=== PATIENT | male | born 1970 | race Caucasian/White ===

== ENCOUNTER → 2016-07-07 | Outpatient (CLI) | payer BC ==
[~2016-07-07] MED LIST: ASPCH81X PO; FENO1TAB PO; MULT-506 PO; VITACAP26 PO
[2016-07-07 16:42] LABS: HEMATOCRIT 37.5 % (42-52); MEAN CELL VOLUME 87.8 fL (80-100); MEAN CORPUSCULAR HEMOGLOBIN 29.3 pg (25-34); MEAN CORPUSCULAR HGB CONC 33.3 g/dl (32-36); MEAN PLATELET VOLUME 11.2 fL (7.4-10.4); PLATELET COUNT 202 K/uL (130-400); RED BLOOD COUNT 4.27 M/uL (4.7-6.1); WHITE BLOOD COUNT 5.53 K/uL (4.8-10.8)
[2016-07-07 16:52] LABS: PROTHROMBIN TIME (PATIENT) 10.7 SECONDS (9.0-12.0)
== END | disposition home or self-care (01) ==
LOC: C.LABBFT 12:36
PROVIDERS: ATTEND Internal Medicine
DX: N40.1 Benign prostatic hyperplasia with lower urinary tract symptoms (principal); K92.1 Melena

== ENCOUNTER → 2017-08-16 | Outpatient (CLI) | payer OTHER ==
[2017-08-16 12:22] LABS: BASO % 0.7 %; BASO ABS # 0.03 K/uL (0-0.2); EOS % 1.6 %; EOS ABS # 0.07 K/uL (0-0.5); HEMATOCRIT 39.1 % (42-52); HEMOGLOBIN 12.8 g/dL (14.0-18.0); IG# 0.01 K/uL (0.00-0.02); LYMPH % 29.6 %; LYMPH ABS # 1.26 K/uL (1.2-3.4); MEAN CELL VOLUME 89.7 fL (80-100); MEAN CORPUSCULAR HEMOGLOBIN 29.4 pg (25-34); MEAN CORPUSCULAR HGB CONC 32.7 g/dl (32-36); MONO % 12.5 %; MONO ABS # 0.53 K/uL (0.11-0.59); NEUT % 55.4 %; NEUT ABS # 2.35 K/uL (1.4-6.5); PLATELET COUNT 194 K/uL (130-400); RED CELL DISTRIBUTION WIDTH CV 14.3 % (11.5-14.5); RED CELL DISTRIBUTION WIDTH SD 46.7 fL (36.4-46.3); WHITE BLOOD COUNT 4.25 K/uL (4.8-10.8)
[2017-08-16 12:49] LABS: ALBUMIN 3.8 gm/dl (3.4-5.0); ALT/SGPT 33 U/L (12-78); AST/SGOT 17 U/L (15-37); BLOOD UREA NITROGEN 20 mg/dl (7-18); CALCIUM 8.9 mg/dl (8.5-10.1); CARBON DIOXIDE 27 mmol/L (21-32); CREATININE 1.11 mg/dl (0.60-1.40); GLUCOSE 97 mg/dl (70-99); POTASSIUM 4.2 mmol/L (3.5-5.1); SODIUM 140 mmol/L (136-145)
[2017-08-16 12:52] LABS: ALKALINE PHOSPHATASE 56 U/L (45-117); CHOLESTEROL 215 mg/dl (0-200); LDL CHOLESTEROL CALCULATED 143 mg/dl; TOTAL PROTEIN 7.6 gm/dl (6.4-8.2)
== END ==
LOC: C.LABBFT 07:32
PROVIDERS: ATTEND Internal Medicine
DX: E78.5 Hyperlipidemia, unspecified (principal)

== ENCOUNTER 2017-11-10 16:09 | Emergency (ER) | payer OTHER ==
[~2017-11-10] VITALS: Ht 175.3 cm; Wt 85.0 kg
[2017-11-10 16:13] VITALS: Ht 175.3 cm; Wt 85.0 kg
[2017-11-10] MEDS ORDERED: SODIUM CHLORIDE 0.9% 1000ML 1,000 ML IV STA (16:23)
[2017-11-10] MEDS ORDERED: OPTIRAY 320 IV PRN (16:30)
[2017-11-10] MEDS ORDERED: URX/10 PO (16:34)
[2017-11-10 17:01] LABS: BASO % 0.1 %; BASO ABS # 0.01 K/uL (0-0.2); EOS % 0.2 %; EOS ABS # 0.02 K/uL (0-0.5); HEMATOCRIT 39.6 % (42-52); HEMOGLOBIN 13.4 g/dL (14.0-18.0); IG# 0.02 K/uL (0.00-0.02); LYMPH % 9.5 %; LYMPH ABS # 1.04 K/uL (1.2-3.4); MEAN CORPUSCULAR HEMOGLOBIN 29.5 pg (25-34); MEAN CORPUSCULAR HGB CONC 33.8 g/dl (32-36); MEAN PLATELET VOLUME 10.9 fL (7.4-10.4); MONO % 8.8 %; MONO ABS # 0.96 K/uL (0.11-0.59); NEUT % 81.2 %; NEUT ABS # 8.85 K/uL (1.4-6.5); PLATELET COUNT 188 K/uL (130-400); RED CELL DISTRIBUTION WIDTH CV 12.9 % (11.5-14.5); RED CELL DISTRIBUTION WIDTH SD 41.1 fL (36.4-46.3)
[2017-11-10 17:17] LABS: ALBUMIN 3.8 gm/dl (3.4-5.0); CALCIUM 8.8 mg/dl (8.5-10.1); CREATININE 1.31 mg/dl (0.60-1.40); POTASSIUM 3.7 mmol/L (3.5-5.1)
[2017-11-10 17:20] LABS: TOTAL PROTEIN 8.1 gm/dl (6.4-8.2)
--- NOTE | 2017-11-10 19:06 | DIAGNOSTIC IMAGING REPORT ---
ABDOMEN AND PELVIS CT WITH IV AND ORAL CONTRAST CT DOSE: 376.81 mGy.cm HISTORY: Left lower quadrant abdominal pain. TECHNIQUE: Multiaxial CT images of the abdomen and pelvis were performed following the use of intravenous and oral contrast. A dose lowering technique was utilized adhering to the principles of ALARA. COMPARISON STUDY: None. FINDINGS: Mild dependent changes seen at the lung bases. No pneumoperitoneum or pneumatosis at this time. A 5 mm hypodense lesion within the left hepatic lobe. This is too small to characterize but statistically represents a cyst. The pancreas, gallbladder, adrenal glands, and spleen are unremarkable. There is a 5 mm stone within the left kidney. Right kidney. No hydronephrosis. Normal bladder. No retroperitoneal lymphadenopathy. Normal appendix. No evidence for bowel obstruction. Multiple colonic diverticula. Moderate bowel wall thickening within the mid descending colon with associated pericolonic fat stranding and a few inflamed diverticula. This is consistent with acute diverticulitis. No perforation or abscess identified at this time. IMPRESSION: 1. Acute diverticulitis involving the mid descending colon. No perforation or abscess identified. Follow-up nonemergent colonoscopy is recommended to ensure resolution and to exclude the less likely possibility of an underlying lesion. 2. No evidence for bowel obstruction. 3. Normal appendix. 4. Left-sided nephrolithiasis. No ureteral stones. No hydronephrosis. Electronically signed by: Manjinder Christianson M.D. 11/10/2017 7:05 PM Dictated Date/Time: 11/10/2017 6:58 PM
--- NOTE | 2017-11-10 19:25 | EMERGENCY ROOM VISIT NOTE ---
History First contact with patient: 16:16 Chief Complaint: ABDOMINAL PAIN Stated Complaint: PAIN IN LFT ABDOMIN Nursing Triage Summary: Patient with c/o of left lower abdominal pain and bloody stools for a few days. History of Present Illness The patient is a 47 year old male who presents to the Emergency Room via private vehicle with complaints of "pain in left abdomen". The patient states that the past 2 days he has been experiencing left lower quadrant abdominal pain that is cramp like. He notes a history of diverticulitis numerous years ago. He rates the pain as a 2/10 but is worse at times. He denies any recent antibiotic use. He also notes intermittent blood in his stool. Minimal diarrhea. No recent illness. No fevers or chills. No chest pain. He does he has had a colonoscopy in the past. Review of Systems A complete 10-point Review of Systems was discussed with the patient, with pertinent positives and negatives listed in the History of Present Illness. All remaining Review of Systems questions can be considered negative unless otherwise specified. Past Medical/Surgical History Diverticulitis Family History Noncontributory Social History Smoking Status: Never Smoker Patient lives locally. Current/Historical Medications Scheduled Alfuzosin HCl (Alfuzosin HCl ER), 10 MG PO HS Ciprofloxacin Hcl (Cipro), 1 TAB PO BID Fenofibrate (Tricor), 160 MG PO QAM Metronidazole (Flagyl), 500 MG PO TID Multivitamin (Multivitamin), 1 TAB PO QAM Vitamins C & E (Vitamin C), 1 CAP PO QAM Physical Exam Vital Signs Date Time Temp Pulse Resp B/P (MAP) Pulse Ox O2 Delivery O2 Flow Rate FiO2 11/10/17 20:11 37.8 104 18 163/108 97 11/10/17 18:41 37.7 99 18 171/105 98 Room Air 11/10/17 17:05 102 18 173/104 98 Room Air 11/10/17 16:51 Room Air 11/10/17 16:13 36.8 117 20 173/104 97 Room Air Physical Exam VITAL SIGNS - Vital signs and nursing notes were reviewed. Tachycardic and hypertensive. Afebrile. GENERAL -47-year-old male appearing his stated age who is in no acute distress but does appear to be in pain. Communicates well with provider and answers questions appropriately. SKIN - Without rashes. No meningeal or petechial rash. HEAD - NC/AT. EYES - Sclera anicteric. Palpebral conjunctiva pink and moist with no injection noted. EARS - No deformities of external structures noted on gross examination bilaterally. NOSE - Midline and without cyanosis. No epistaxis or purulent drainage noted. MOUTH/OROPHARYNX - Without perioral cyanosis. NECK - No nuchal rigidity. LUNGS - Chest wall symmetric without accessory muscle use, intercostals retractions, or central cyanosis. Normal vesicular breath sounds CTA B/L. No wheezes, rales, or rhonchi appreciated. CARDIAC - RRR with S1/S2. No murmur, rubs, or gallops appreciated. ABDOMEN - Abdominal contour normal without pulsations or visible masses. BS normoactive all four quadrants. Left lower quadrant abdominal tenderness noted. No palpable masses, hepatosplenomegaly, or ascites noted. EXTREMITIES - No clubbing or peripheral cyanosis. No pretibial edema present. +5 /5 strength noted in UE/LE bilaterally. NEUROLOGIC - Cranial nerves II through XII grossly intact. Sensory intact to light touch throughout. PSYCH - A&O, and cooperates fully with examiner. Pt is very pleasant and interacts well with examiner. Medical Decision & Procedures ER Provider Diagnostic Interpretation: ABDOMEN AND PELVIS CT WITH IV AND ORAL CONTRAST CT DOSE: 376.81 mGy.cm HISTORY: Left lower quadrant abdominal pain. TECHNIQUE: Multiaxial CT images of the abdomen and pelvis were performed following the use of intravenous and oral contrast. A dose lowering technique was utilized adhering to the principles of ALARA. COMPARISON STUDY: None. FINDINGS: Mild dependent changes seen at the lung bases. No pneumoperitoneum or pneumatosis at this time. A 5 mm hypodense lesion within the left hepatic lobe. This is too small to characterize but statistically represents a cyst. The pancreas, gallbladder, adrenal glands, and spleen are unremarkable. There is a 5 mm stone within the left kidney. Right kidney. No hydronephrosis. Normal bladder. No retroperitoneal lymphadenopathy. Normal appendix. No evidence for bowel obstruction. Multiple colonic diverticula. Moderate bowel wall thickening within the mid descending colon with associated pericolonic fat stranding and a few inflamed diverticula. This is consistent with acute diverticulitis. No perforation or abscess identified at this time. IMPRESSION: 1. Acute diverticulitis involving the mid descending colon. No perforation or abscess identified. Follow-up nonemergent colonoscopy is recommended to ensure resolution and to exclude the less likely possibility of an underlying lesion. 2. No evidence for bowel obstruction. 3. Normal appendix. 4. Left-sided nephrolithiasis. No ureteral stones. No hydronephrosis. Electronically signed by: Manjinder Christianson M.D. 11/10/2017 7:05 PM Dictated Date/Time: 11/10/2017 6:58 PM Laboratory Results 11/10/17 16:50 Red Blood Count 4.55, Mean Corpuscular Volume 87.0, Mean Corpuscular Hemoglobin 29.5, Mean Corpuscular Hemoglobin Concent 33.8, Mean Platelet Volume 10.9, Neutrophils (%) (Auto) 81.2, Lymphocytes (%) (Auto) 9.5, Monocytes (%) (Auto) 8.8, Eosinophils (%) (Auto) 0.2, Basophils (%) (Auto) 0.1, Neutrophils # (Auto) 8.85, Lymphocytes # (Auto) 1.04, Monocytes # (Auto) 0.96, Eosinophils # (Auto) 0.02, Basophils # (Auto) 0.01 11/10/17 16:50 Test 11/10/17 16:50 11/10/17 17:48 White Blood Count 10.90 K/uL (4.8-10.8) Red Blood Count 4.55 M/uL (4.7-6.1) Hemoglobin 13.4 g/dL (14.0-18.0) Hematocrit 39.6 % (42-52) Mean Corpuscular Volume 87.0 fL (80-100) Mean Corpuscular Hemoglobin 29.5 pg (25-34) Mean Corpuscular Hemoglobin Concent 33.8 g/dl (32-36) Platelet Count 188 K/uL (130-400) Mean Platelet Volume 10.9 fL (7.4-10.4) Neutrophils (%) (Auto) 81.2 % Lymphocytes (%) (Auto) 9.5 % Monocytes (%) (Auto) 8.8 % Eosinophils (%) (Auto) 0.2 % Basophils (%) (Auto) 0.1 % Neutrophils # (Auto) 8.85 K/uL (1.4-6.5) Lymphocytes # (Auto) 1.04 K/uL (1.2-3.4) Monocytes # (Auto) 0.96 K/uL (0.11-0.59) Eosinophils # (Auto) 0.02 K/uL (0-0.5) Basophils # (Auto) 0.01 K/uL (0-0.2) RDW Standard Deviation 41.1 fL (36.4-46.3) RDW Coefficient of Variation 12.9 % (11.5-14.5) Immature Granulocyte % (Auto) 0.2 % Immature Granulocyte # (Auto) 0.02 K/uL (0.00-0.02) Anion Gap 7.0 mmol/L (3-11) Est Creatinine Clear Calc Drug Dose 74.6 ml/min Estimated GFR () 74.1 Estimated GFR (Non- 63.9 BUN/Creatinine Ratio 14.5 (10-20) Calcium Level 8.8 mg/dl (8.5-10.1) Magnesium Level 2.2 mg/dl (1.8-2.4) Total Bilirubin 0.5 mg/dl (0.2-1) Aspartate Amino Transf (AST/SGOT) 19 U/L (15-37) Alanine Aminotransferase (ALT/SGPT) 26 U/L (12-78) Alkaline Phosphatase 62 U/L (45-117) Total Protein 8.1 gm/dl (6.4-8.2) Albumin 3.8 gm/dl (3.4-5.0) Globulin 4.3 gm/dl (2.5-4.0) Albumin/Globulin Ratio 0.9 (0.9-2) Lipase 107 U/L (73-393) Urine Color YELLOW Urine Appearance CLEAR (CLEAR) Urine pH 6.0 (4.5-7.5) Urine Specific [place] 1.016 (1.000-1.030) Urine Protein NEG (NEG) Urine Glucose (UA) NEG (NEG) Urine Ketones NEG (NEG) Urine Occult Blood NEG (NEG) Urine Nitrite NEG (NEG) Urine Bilirubin NEG (NEG) Urine Urobilinogen NEG (NEG) Urine Leukocyte Esterase NEG (NEG) Medications Administered Medications (Trade) Dose Ordered Sig/Macarena Route Start Time Stop Time Status Last Admin Dose Admin Sodium Chloride 1,000 ml @ 999 mls/hr Q1H1M STAT IV 11/10/17 16:23 11/10/17 17:23 DC 11/10/17 17:05 999 MLS/HR Ciprofloxacin (Cipro Tab) 500 mg NOW STAT PO 11/10/17 19:28 11/10/17 19:30 DC 11/10/17 19:54 500 MG Metronidazole (Flagyl Tab) 500 mg NOW STAT PO 11/10/17 19:28 11/10/17 19:30 DC 11/10/17 19:54 500 MG Ciprofloxacin (Cipro 500MG Home Pack) 1 homepack UD STAT PO 11/10/17 19:28 11/10/17 19:30 DC 11/10/17 19:54 1 HOMEPACK Metronidazole (Flagyl Tab) 500 mg NOW STAT PO 11/10/17 19:28 11/10/17 19:30 DC 11/10/17 19:54 500 MG Medical Decision Patient was seen and evaluated as above in room C8. Review was performed of nursing notes and vital signs. He presents to us today with left lower quadrant abdominal pain. He has a history of diverticulitis. After obtaining a thorough history and physical examination the above work up was performed. He was given fluids. He declined pain medication. CBC does reveal leukocytosis with slight anemia. This has improved compared to previous. Metabolic panel reveals no evidence of kidney or liver failure. He does appear to be dehydrated and was given 1 L of normal saline here. This did improve his tachycardia. Urinalysis is negative. CT scan reveals diverticulitis. He did spike a fever here. He was reevaluated and appears well. He was informed to stay well-hydrated. He was offered inpatient management and prefers to go home. He will be given Cipro and Flagyl. He does have a penicillin allergy. He is to call the family doctor to schedule follow-up. I informed him that a colonoscopy is recommended after clinical improvement of the diverticulitis. He is to return with worsening. He was able tolerate p.o. medication here. The patient was educated upon management, had questions answered prior to discharge , and was discharged home in good condition. Case was discussed with the attending physician. In the evaluation and treatment of this patient the following differential diagnoses were entertained: Diverticulitis, appendicitis, cholecystitis, UTI, pyelonephritis, mass, among others. Impression Primary Impression: Diverticulitis Additional Impression: Anemia Departure Information Dispostion Home / Self-Care Condition GOOD Prescriptions Metronidazole (Flagyl) 500 Mg Tab 500 MG PO TID, #28 TAB Prov: Natanael Barber PA-C 11/10/17 Ciprofloxacin Hcl (CIPRO) 500 Mg Tab 1 TAB PO BID for 9 Days, #18 TAB Prov: Natanael Barber PA-C 11/10/17 Referrals Gabriel Mayorga M.D. (PCP) Elissa Aaron, DO Patient Instructions Diverticulitis Ct, ED [facility], [facility] Additional Instructions You have been treated in the Emergency Department your Abdominal Pain. CT scan reveals you have diverticulitis. As we discussed it is recommended you had a colonoscopy after this resolves. This is to exclude any underlying mass or lesion. I recommend Flagyl which is 500 mg every 8 hours for 10 days. Please not drink alcohol with this. It will make you violently ill. I recommend ciprofloxacin 500 mg every 12 hours for 10 days as well. Please do not lift anything heavy. This can cause tendon rupture. For pain control, you can use the following [id number] medicines (if >12 yo): - Regular strength (325mg/tab) Tylenol (acetaminophen) 2 tabs every 4-6 hours as needed. Do not exceed 12 tablets in a 24 hour period. Avoid taking more than 3 grams (3000 mg) of Tylenol per day. This includes any other sources of acetaminophen you may take on a regular basis. - Regular strength (200 mg/tab) Advil (ibuprofen) 1-2 tabs every 4-6 hours as needed. Do not exceed a dose of 3200 mg per day. Drink plenty of water and stay well hydrated. As with any trip to the Emergency Department, you should follow-up with your Primary Care Provider from today's visit. As we discussed you may need to see a GI specialist of the colonoscopy. Please follow with your family doctor to have this performed. Return to the emergency department if your symptoms persist despite treatment plan outlined above or if the following symptoms occur: increased fevers, chills , worsening nausea/vomiting, blood in your stool or urine. Problem Qualifiers
[2017-11-10] MEDS ORDERED: METRONIDAZOLE 250 MG TAB PO STA ×2 (19:28)
[2017-11-10] MEDS ORDERED: CIPROFLOXACIN 500 MG TAB PO STA (19:28)
[2017-11-10] MEDS ORDERED: CIPROFLOXACIN 500MG HOME PACK PO STA (19:28)
[2017-11-10] MEDS ORDERED: CIPR-255 PO (19:39)
[2017-11-10] MEDS ORDERED: METR-163 PO (19:39)
[2017-11-10 20:11] VITALS: BP 163/108; PULSE 104; TEMP 37.8; O2SAT 97
== END 2017-11-10 19:55 | disposition home or self-care (01) ==
LOC: C.EDB 16:11 → C.EDC 19:55
DX: K57.92 Diverticulitis of intestine, part unspecified, without perforation or abscess without bleeding (principal); D64.9 Anemia, unspecified; Z87.19 Personal history of other diseases of the digestive system

== ENCOUNTER 2021-02-24 10:29 | Inpatient (IN) ==
--- NOTE | 2021-02-16 16:02 | PAT Medication Instructions ---
Medication Instructions Date of Service February 16, 2021 Home Medications Medication Instructions Recorded sodium sul 1.479 gram-potas ch See Rx Instructions .ROUTE 02/03/21 0.188 gram-magnes sul 0.225 gram .COMPLEX #24 tab tablet (Sutab) oxycodone 5 mg tablet See Rx Instructions PO Q6H PRN #30 02/16/21 tab multivitamin 1 tab PO QAM ascorbate calcium (vitamin C) 500 mg tablet 500 mg PO QAM fenofibrate 160 mg tablet 160 mg PO QAM oxycodone 5 mg tablet See Rx Instructions PO Q6H PRN polysaccharide iron complex 150 mg iron capsule (iFerex 150) 150 mg PO QAM STOP taking 48 hours before surgery fenofibrate 160 mg tablet 160 mg PO QAM DO NOT take the morning of surgery multivitamin 1 tab PO QAM ascorbate calcium (vitamin C) 500 mg tablet 500 mg PO QAM polysaccharide iron complex 150 mg iron capsule (iFerex 150) 150 mg PO QAM Take morning of surgery With a small sip of water, OTHERWISE NOTHING TO EAT OR DRINK AFTER MIDNIGHT: oxycodone 5 mg tablet See Rx Instructions PO Q6H PRN (okay to take up to 4 hours prior to surgery if needed) Other Notes If you have any questions please call us at [phone] or [phone] or [phone] or [phone]
--- NOTE | 2021-02-17 12:38 | Anesthesiology Consultation ---
Date of Service February 17, 2021 Assessment & Plan (1) Encounter for pre-operative examination: Chart Review Chart Review: Acceptable Risk for Surgery (pending preop Covid testing results and surgeon ordered preop UA ) and Patient seen in Pre Admission Testing Pt could not urinate at PAT appt- dropping UA off at [facility] lab Per PAT appt on 02/17/21, patient denies any recent travel or large group activities. No known Covid positive contacts or Covid related symptoms. No known Covid infection in the past 90 days. Pt is vaccinated for Covid. Preop Covid testing scheduled 02/22/21= will await results. Educated on importance of self quarantining, social distancing and wearing mask in public for the patient one week prior to surgery and after Covid testing done History Surgery Operation Date: 02/24/21 13:35 Proposed Procedures p L5-S1 Deompression/Fusion, Spinal Cord Monitoring - Gamaliel Andrade, Height/Weight Height: 5 ft 10 in Weight: 76.5 kg Allergies Allergy/AdvReac Type Severity Reaction Status Date / Time Penicillins Allergy Mild nausea Verified 02/16/21 15:15 when child clindamycin Allergy Unknown Verified 02/16/21 15:15 HMG-CoA-R Inhibitors Allergy Mild skin on Uncoded 02/16/21 15:15 fire Medications Home Medications Medication Instructions Recorded Confirmed Last Taken multivitamin 1 tab PO QAM 03/19/19 02/16/21 Unknown ascorbate calcium (vitamin C) 500 500 mg PO QAM 04/24/20 02/16/21 Unknown mg tablet sodium sul 1.479 gram-potas ch See Rx Instructions .ROUTE 02/03/21 Unknown 0.188 gram-magnes sul 0.225 gram .COMPLEX #24 tab tablet (Sutab) fenofibrate 160 mg tablet 160 mg PO QAM 02/16/21 02/16/21 Unknown oxycodone 5 mg tablet See Rx Instructions PO Q6H PRN #30 02/16/21 02/16/21 Unknown tab polysaccharide iron complex 150 mg 150 mg PO QAM 02/16/21 02/16/21 Unknown iron capsule (iFerex 150) Past Medical History Medical History Anemia Takes iron supplement BPH with obstruction/lower urinary tract symptoms Hyperlipidemia Spinal stenosis herniated disc Exercise / Class Metabolic Activity II 4-5 Yardwork/Stairs/Walk up hill (one flight of stairs - no chest pain or SOB (activitly limited the past four weeks due to significant back pain)) Past Surgical History Surgical History History of colonoscopy (07/28/15) Dr Albrecht, 5 mm polyp, recheck 5 years History of surgery on right wrist ORIF Past Anesthesia History No Hx of Anesthesia Complications and No Family Hx of Anesthesia Complications History of PONV No Hx of PONV and No Hx of Motion Sickness Social History Smoking Status: Never smoker Do You Dip or Chew Tobacco: No Hx Alcohol Use: Yes Alcohol type: beer alcohol intake frequency: 0-2 drinks per day (2-3 beers/day ) Hx Substance Use: No substance use type: does not use Review of Systems Hx of snoring - no witnessed apnea. No of sleep study Patient denies chest pain, shortness of breath, dyspnea on exertion, reflux, cough, wheezing, palpitations. No hx of seizures, stroke, [place]. No hx of blood clots or blood transfusions Physical Exam Vital Signs VITALS BP 159/106 (pt in significant back pain) P 89 TEMP 98.1 SP02 97% RESP 16 Constitutional no acute distress ENMT Mouth: no TMJ clicking Thyromental Distance: > or= 3.5 Finger Breadths (3.5) Mallampati Class: II Neck neck extension not limited (mild ) Respiratory normal respiratory effort; no respiratory distress Auscultation: lungs clear to auscultation bilaterally; no wheezes Cardiovascular Rate/Rhythm: regular rate and regular rhythm Heart Sounds: no murmur Vessels: no carotid bruit Musculoskeletal Spine: no pain with cervical ROM Extremities: extremities normal to inspection Psychiatric Orientation: alert Lab Results Anesthesia Preop Results Results Anesthesia Widget: WBC 6.94 K/uL (4.8-10.8) 02/17/21 Hgb 14.2 g/dL (14.0-18.0) 02/17/21 Hct 43.3 % (42-52) 02/17/21 Plt 294 K/uL (130-400) 02/17/21 Na 138 mmol/L (136-145) 02/17/21 K 4.4 mmol/L (3.5-5.1) 02/17/21 Cl 108 mmol/L (98-107) H 02/17/21 CO2 28 mmol/L (21-32) 02/17/21 BUN 19 mg/dl (7-18) H 02/17/21 Creat 0.93 mg/dl (0.6-1.4) 02/17/21 Glucose Level 91 mg/dl (70-99) 02/17/21 PT 10.3 Seconds (9.0-12.0) 02/17/21 PTT 27.3 Seconds (21.0-31.0) 02/17/21 INR 1.0 (0.9-1.1) 02/17/21 Urine Blood Pending 02/17/21 Blood Type O Positive 02/17/21 Antibody Screen NEGATIVE 02/17/21 Testing Electrocardiogram Date: 02/17/21 Findings: + NSR @ (88bpm) Left axis deviation Chest X-Ray Date: 02/17/21 Findings: + NAD
--- NOTE | 2021-02-23 12:39 | History & Physical Report ---
Date of Service February 23, 2021 Assessment & Plan (1) Lumbar radiculopathy, right: Plan: Patient is evidence of a far lateral disc herniation with severe neuroforaminal disease L5-S1 on the right consistent with an L5 radiculopathy. He demonstrates progressive strength deficits. I am recommending urgent lumbar decompression fusion L5-S1 to avoid permanent neurologic deficit. History of Present Illness Chief Complaint: Right leg pain with weakness Primary Care Provider: Gabriel Mayorga MD This is a 50-year-old male presents with progressive leg pain and weakness affecting the right lower extremity. He denies any precipitating trauma fall or event. He has been unable to work. He has undergone several courses of oral steroids as well as narcotic pain medications without resolution of his pain. We did trial one epidural injection which failed to provide any noticeable relief. He now notes a foot drop with ambulation and unable to perform his regular activities and unable to sleep. Allergies Allergy/AdvReac Type Severity Reaction Status Date / Time Abgitxz-Ugq-Agw Reductase Allergy Intermediate skin on Verified 02/19/21 08:00 Inhibitor fire Penicillins Allergy Mild nausea Verified 02/16/21 15:15 when child clindamycin Allergy Unknown Unknown Verified 02/19/21 08:00 Home Medications Medication Instructions Recorded Confirmed Type multivitamin 1 tab PO QAM 03/19/19 02/16/21 History ascorbate calcium (vitamin C) 500 500 mg PO QAM 04/24/20 02/16/21 History mg tablet sodium sul 1.479 gram-potas ch See Rx Instructions .ROUTE 02/03/21 Rx 0.188 gram-magnes sul 0.225 gram .COMPLEX #24 tab tablet (Sutab) fenofibrate 160 mg tablet 160 mg PO QAM 02/16/21 02/16/21 History polysaccharide iron complex 150 mg 150 mg PO QAM 02/16/21 02/16/21 History iron capsule (iFerex 150) oxycodone 5 mg tablet See Rx Instructions PO Q6H PRN #30 02/21/21 Rx tab Past Med/Surg History Medical History Anemia Takes iron supplement BPH with obstruction/lower urinary tract symptoms Hyperlipidemia Spinal stenosis herniated disc Surgical History History of colonoscopy (07/28/15) Dr Albrecht, 5 mm polyp, recheck 5 years History of surgery on right wrist ORIF Social History Smoking Status: Never smoker Second Hand Exposure: No; Hx Alcohol Use: Yes Alcohol type: beer Hx Substance Use: No Preferred Language: [place]an Communication Ability: Effective Water Pollution Control Inspector Required: No Beliefs That Will Affect Care: None Current Living Situation: Spouse Feels Safe at Home: Yes Assistive Devices: None Physical Exam Physical Exam: Patient is alert and oriented Heart regular in rhythm Lungs clear to auscultation Patient demonstrates severe strength deficits to dorsiflexion extensor hallucis longus on the right 3+/5. On the left he is a 5/5. Quadriceps are symmetric and intact. There is marked sensory deficits to the right lower extremity compared to the left.
[~2021-02-24 10:29] MED LIST changes: +ACETAMINOPHEN 500 MG TAB PO SCH; -ASPCH81X PO; +CeleBREX 200 MG CAP PO SCH; -FENO1TAB PO; +GABAPENTIN 900 MG DOSE PO SCH; +LR 15ML/HR IV SCH; -MULT-506 PO; -VITACAP26 PO
[2021-02-24] MEDS ORDERED: fentaNYL citrate 100 MCG/2 ML VIAL ONE ×2 (11:26→12:25)
[2021-02-24] MEDS ORDERED: MIDAZOLAM HCL 1 MG/ML 2ML VIAL ONE (11:26)
--- NOTE | 2021-02-24 11:33 | History & Physical Bridge Note ---
Date of Service February 24, 2021 History & Physical Bridge Note I have examined the patient, reviewed the History & Physical and in the interval since the performance of the History & Physical I have noted the following changes of clinical significance: no changes noted
[2021-02-24] MEDS ORDERED: ceFAZolin 2000MG 2,000 MG/15 ML SYR IV ONE (11:48)
[2021-02-24] MEDS ORDERED: ceFAZolin 2,000 MG/15 ML IV PUSH IV ONE (11:51)
[2021-02-24] MEDS ORDERED: ATROPINE SULFATE 0.1 MG/ML 10ML SYR IV PRN (11:51)
[2021-02-24] MEDS ORDERED: ePHEDrine sulfate 50 MG/ML AMP IV PRN (11:51)
[2021-02-24] MEDS ORDERED: ONDANSETRON INJ 2 MG/ML 2 ML VIAL IV PRN ×2 (11:51→16:26)
[2021-02-24] MEDS ORDERED: BUPIVACAINE 0.5 % 5 MG/1 ML MPF 30ML VIAL ONE (11:57)
[2021-02-24] MEDS ORDERED: EPINEPHrine INJ 1 MG/ML AMP ONE (11:57)
[2021-02-24] MEDS ORDERED: ONDANSETRON INJ 2 MG/ML 2 ML VIAL ONE (12:35)
[2021-02-24] MEDS ORDERED: PROPOFOL IV EMULSION 10 MG/ML 20 ML VIAL IV ONE (12:35)
[2021-02-24] MEDS ORDERED: LIDOCAINE 2% 2 ML VIAL/AMP(20MG/ML) INFIL ONE (12:35)
[2021-02-24] MEDS ORDERED: DEXAMETHASONE SOD INJ 4 MG/ML VIAL ONE (12:35)
[2021-02-24] MEDS ORDERED: ROCURONIUM BROMIDE 10 MG/ML 5 ML VIAL IV ONE ×7 (12:35)
[2021-02-24] MEDS ORDERED: GLYCOPYRROLATE 0.2 MG/ML VIAL ONE (12:36)
[2021-02-24] MEDS ORDERED: HYDROmorphone INJ 2 MG/ML SYR/VIAL ONE (12:36)
[2021-02-24] MEDS ORDERED: NEOSTIGMINE METHYLSULFATE 1 MG/ML 10ML VIAL ONE (12:36)
[2021-02-24] MEDS ORDERED: FLOSEAL HEMOSTATIC MATRIX 10ML TOP ONE (13:40)
[2021-02-24] MEDS ORDERED: SUGAMMADEX SODIUM 200 MG/2 ML VIAL IV ONE (13:44)
--- NOTE | 2021-02-24 13:47 | Operative Report ---
Post Operative Report Pre & Post Diagnosis Operation Date: 02/24/21 12:25 Pre-Op Diagnosis: Spinal Stenosis, Lumbar Region without Neurogenic Claudication Post-Op Diagnosis: Spinal Stenosis, Lumbar Region without Neurogenic Claudication I identified the patient and participated in the time-out.: Yes Procedure Operation Date: 02/24/21 12:25 Actual Procedures #1 lumbar decompression with bilateral medial facetectomies and foraminotomies L5-S1. #2 posterior spinal fusion L5-S1. #3 placement of posterior instrumentation L5-S1. #4 interbody fusion L5-S1. #5 placement peek cage 12 x 26 mm at L5-S1. #6 placement locally harvested morselized autograft in the posterior gutters. #7 placement of I factor in the interbody space and posterior lateral gutters. Surgeon Gamaliel Andrade, Master Sonar Technician Michaela Amaral Estimated Blood Loss 100 Findings Consistent with Post-Op Diagnosis Specimens None Indications This is a 50-year-old male who presents with marked right leg pain and neurologic findings here for urgent decompression fusion. Description of Procedure Patient was met with identified informed consent obtained. Patient was then taken to the operative suite underwent intubation placed in a prone position the Luca table top of some frame. All bony prominences well-padded eyes inspected to ensure no external pressure placed upon them. This point the lumbar spine was prepped and draped in a sterile fashion. Sharp dissection with the assistance of Bovie cartilage from down to and exposing the lamina and transverse processes of L5 and sacral ala bilaterally. From caudal to cephalad fashion complete laminectomy of L5 was performed including bilateral medial face tectomies and foraminotomies addressing severe foraminal stenosis. Several fragments of disc material and cartilaginous tear within the right neural foramen. Pedicle screws were then placed in L5 and S1 levels bilaterally with assistance of fluoroscopy and the proper sized gracy placed. By way of a transforaminal portion right complete discectomy was performed endplates curetted to subcortical being bone and a 12 x 26 mm peek cage filled I factor tapped in position. The rods were then locked in final position bilaterally. The transverse process of L5 and sacral ala burred to subcortical bleeding bone. I factor combined with locally harvested morselized autograft was then placed in the posterior gutters. 15 round DAVION drain inserted. The incision was then closed with 1 Vicryl to fascia 2-0 Vicryl subcutaneously and 4 Monocryl for final skin closure. Steri-Strip sterile dressings placed. Patient will continue PACU stable condition. Please note spinal cord monitoring was utilized at the procedure no changes noted. Lastly Michaela Amaral was present at the entire surgeon while the patient positioning complex portions of the surgery and vascular closure. I attest to the content of the Intraoperative Record and any orders documented therein. Any exceptions are noted below.
[2021-02-24] MEDS: fentaNYL citrate 100 MCG/2 ML VIAL IV PRN ×4 (14:12→14:38)
--- NOTE | 2021-02-24 14:49 | Fluoroscopy Report ---
FL lumbar spine 2-3V CLINICAL HISTORY: L5-S1 DECOMP AND FUSION COMPARISON STUDY: None. FLUOROSCOPY TIME: 23 seconds. FINDINGS: 2 fluoroscopic spot images of the lower lumbar spine demonstrate posterior decompression fu lucas at L5-S1 with pedicle screws and rods. The hardware appears intact. There is also a disc spacer at this level. IMPRESSION: Fluoroscopy provided for L5-S1 posterior decompression and fusion ACT 112: Negative or not required by law. Electronically signed by: Manjinder Christianson M.D. 02/24/2021 2:47 PM
--- NOTE | 2021-02-24 14:51 | Anesthesiology Progress Note ---
Date of Service February 24, 2021 Anesthesia Post Procedure Vital Signs Vital Signs: Temp Pulse Pulse Resp BP BP Pulse Ox 02/24/21 14:40 78 16 164/104 H 94 02/24/21 14:30 87 16 149/91 H 98 02/24/21 14:20 86 12 162/87 H 98 02/24/21 14:10 78 12 156/97 H 100 02/24/21 14:01 96.8 F L 89 12 162/92 H 96 02/24/21 10:54 98.4 F 87 20 167/103 H 97 Pain Intensity Right Leg: Pain Intensity: 6 Back: Pain Intensity: 5 Transfer of Care Handoff Completed per policy Notes Mental Status: alert / awake / arousable and participated in evaluation Patient Amnestic to Procedure: Yes Nausea / Vomiting: adequately controlled Pain: adequately controlled Airway Patency, RR, SpO2: stable & adequate BP & HR: stable & adequate Hydration State: stable & adequate Anesthetic Complications: no major complications apparent and Pt Satisfied with anesthetic care
[2021-02-24] MEDS ORDERED: DO NOT ADMINISTER FLU VACCINE PRN (16:26)
[2021-02-24] MEDS ORDERED: ACETAMINOPHEN 500 MG TAB PO PRN (16:26)
[2021-02-24] MEDS ORDERED: diphenhydrAMINE Capsule 25 MG CAP PO PRN (16:26)
[2021-02-24] MEDS ORDERED: ONDANSETRON 4 MG OD TAB PO PRN (16:26)
[2021-02-24] MEDS ORDERED: hydrOXYzine HCl 25 MG TAB PO PRN (16:26)
[2021-02-24] MEDS ORDERED: MAGNESIUM HYDROXIDE SUSP 30 ML UDC PO PRN (16:26)
[2021-02-24] MEDS ORDERED: PROMETHAZINE HCL 12.5 MG in SODIUM CHLORIDE 0.9% 50 ML IV PRN (16:26)
[2021-02-24] MEDS ORDERED: SOD PHOSPHATE/SOD BIPHOSPHATE ENEMA 132 ML BTL PR PRN (16:26)
[2021-02-24] MEDS ORDERED: DO NOT ADMINISTER PNEUMOCOCCAL VACCINE PRN (16:26)
[2021-02-24] MEDS ORDERED: ACETAMINOPHEN 1,000 MG/100 ML VIAL IV PRN (16:26)
[2021-02-24] MEDS ORDERED: METOCLOPRAMIDE HCL INJ 5 MG/ML 2 ML VIAL IV PRN (16:26)
[2021-02-24] MEDS ORDERED: NALOXONE HCL 0.4 MG/1 ML VIAL/CARP IV PRN (16:26)
[2021-02-24] MEDS ORDERED: HYDROmorphone INJ 1 MG/ML SYRINGE IV PRN (16:26)
[2021-02-24] MEDS ORDERED: LORazepam 0.5 MG/1 ML VIAL IV PRN (16:26)
[2021-02-24] MEDS ORDERED: ALUMINUM/MAGNESIUM SUSP 30 ML UDC PO PRN (16:26)
[2021-02-24] MEDS ORDERED: FAMOTIDINE 20 MG TAB PO PRN (16:26)
[2021-02-24] MEDS ORDERED: HYDROmorphone INJ 0.5 MG/0.5 ML SYR IV PRN (16:26)
[2021-02-24] MEDS ORDERED: LORazepam 0.5 MG TAB PO PRN (16:26)
[2021-02-24] MEDS ORDERED: bisacodyL 10 MG SUPP PR PRN (16:26)
[2021-02-24] MEDS: KETOROLAC 30 MG/ML VIAL IV SCH ×2 (17:58→23:18)
[2021-02-24] MEDS: LACTATED RINGER'S 1,000 ML IV SCH (17:58)
[2021-02-24] MEDS: DOCUSATE SODIUM/SENNA 50/8.6MG TAB PO SCH (19:35)
[2021-02-24] MEDS: ceFAZolin 2000MG 2,000 MG/15 ML SYR IV SCH (19:36)
[2021-02-25] MEDS: ceFAZolin 2000MG 2,000 MG/15 ML SYR IV SCH (03:06)
[2021-02-25] MEDS: LACTATED RINGER'S 1,000 ML IV SCH (03:06)
[2021-02-25] MEDS: POLYETHYLENE (MIRALAX) 17 GM PACK PO SCH ×4 (06:10→23:14)
[2021-02-25] MEDS: KETOROLAC 30 MG/ML VIAL IV SCH ×2 (06:10→10:45)
[2021-02-25] MEDS: oxyCODONE HCL IR 5 MG TAB (IMMEDIATE RELEASE) PO PRN ×4 (07:36→21:25)
--- NOTE | 2021-02-25 08:50 | Hospitalist Consultation ---
Date of Consultation February 25, 2021 Assessment & Plan (1) Lumbar radiculopathy, right: POD#1 s/p #1 lumbar decompression with bilateral medial facetectomies and foraminotomies L5-S1. #2 posterior spinal fusion L5-S1. #3 placement of posterior instrumentation L5-S1. #4 interbody fusion L5-S1. #5 placement peek cage 12 x 26 mm at L5-S1. #6 placement locally harvested morselized autograft in the posterior gutters. #7 placement of I factor in the interbody space and posterior lateral gutters. by Dr. Andrade on 02/24. Pre-op h/h 14.2/43.3 EBL 100cc. + DAVION 270cc Hgb/hct today 11.6/35.5 -- acute blood loss anemia from surgery as well as dilutional in patient with history of anemia on iron replacement at home (got 3.1L during pre/perioperative period) PT/OT/pain management/bowel regiment per primary service --> added colace BID as had been taking at home. miralax scheduled Q6H DVT proph -- SCDs, ania hose. Chemical contraindicated in setting of back surgery Labs in AM (2) Anemia: Patient states had c-scope by Dr. Albrecht approx 6 years ago and was due for repeat after 5 years but this was postponed due to current issue Had been having bloody diarrhea (non-painful) AFTER colonoscopy and + fecal occult per patient --> reported having straight liquid bloody diarrhea on multiple occasions, none recently and had been started on daily iron supplementation No family history of colon ca, crohns/colitis Will check iron stores on AM labs/B12/folate (give etoh) and attempt to get sooner follow up with Dr. Albrecht for evaluation Continue ferrous sulfate supplementation while inpatient CBC in AM (3) Alcohol use: reported 2-3 beers/daily AWSS ordered, ativan prn no signs of withdrawal currently continue to monitor recs decreased use/abstinence to prevent worsening bleeding issues Thiamine, folate replacement in AM. Will await B12 prior to ordering on AM labs (4) Hypercholesteremia: continue fenofibrate (5) Hypokalemia: K 3.4-- ordered 20meq PO x 1 Mag wnl BMP in AM (6) DVT prophylaxis: scds, ania hose chemical contraindicated in setting of back surgery History of Present Illness Reason for Consultation: medical management Requesting Physician: medical management Attending Physician: Gamaliel Andrade DO History of Present Illness 50-year-old male with past medical history anemia, hypercholesterolemia and radiculopathy presented for L4 3S1 decompression fusion with Dr. Andrade on 02/24. He had been following with chiropractor it is currently past for her back issues. He had been undergoing manipulation and was recommended by his chiropractor for an MRI of his lumbar spine due to probable L4-L5 nerve root compression based on symptoms of low back problems with aftercare up from the toilet and stretching in December and then progressed to radicular symptoms of numbness pain and tingling burning that extended dorsal aspect of his right foot as well as weakness in his right lower extremity. He is trialed prednisone taper, significantly, ibuprofen as well as chiropractors noted. Patient evaluated this morning. Pain controlled. No further leg symptoms -- was having right LE numbness/tingling. These have resolved. Only pain, rated 5-6/10 is to back from incisional discomfort. Eating/drinking without issue. Passing gas but no BM since Monday. Has been on iron supplementation due to anemia but also was taking miralax and colace at home recently to help with bowels while on oxycodone for pain control. Of note, patient does admit to colonoscopy with Dr Albrecht approximately 6 years ago which had polyps and was due about a year ago. Was initially going to have done but then back issues. He notes he has had hematochezia both toilet paper and bowel, non-painful bloody diarrhea. No personal or family history of chrons or colitis. Discussed will look into having admin secretary arrange for sooner follow-up. He notes the bleeding in the stool started to occur after previous colonoscopy. No alternating bowel habits prior to starting the iron and no unexplained weight loss or history of colon ca. Denies smoking history however does note 2-3 beers after work nightly. Will order AWSS however does not appear to have any withdrawal at this time. Allergies Allergy/AdvReac Type Severity Reaction Status Date / Time Nllmpyd-Dku-Axm Reductase Allergy Intermediate skin on Verified 02/24/21 10:44 Inhibitor fire Penicillins Allergy Mild nausea Verified 02/24/21 10:44 when child clindamycin Allergy Unknown Unknown Verified 02/24/21 10:44 Home Medications Medication Instructions Recorded Confirmed Type multivitamin 1 tab PO QAM 03/19/19 02/24/21 History ascorbate calcium (vitamin C) 500 500 mg PO QAM 04/24/20 02/24/21 History mg tablet sodium sul 1.479 gram-potas ch See Rx Instructions .ROUTE 02/03/21 02/24/21 Rx 0.188 gram-magnes sul 0.225 gram .COMPLEX #24 tab tablet (Sutab) fenofibrate 160 mg tablet 160 mg PO QAM 02/16/21 02/24/21 History polysaccharide iron complex 150 mg 150 mg PO QAM 02/16/21 02/24/21 History iron capsule (iFerex 150) oxycodone 5 mg tablet See Rx Instructions PO Q6H PRN #30 02/21/21 02/24/21 Rx tab Patient History Medical History Anemia Takes iron supplement BPH with obstruction/lower urinary tract symptoms Hyperlipidemia Spinal stenosis herniated disc Surgical History History of colonoscopy (07/28/15) Dr Albrecht, 5 mm polyp, recheck 5 years History of surgery on right wrist ORIF Social History Smoking Status: Never smoker Second Hand Exposure: No; Do You Dip or Chew Tobacco: No; Tobacco Cessation Education Requested by Patient: No Hx Alcohol Use: Yes Alcohol type: beer Hx Substance Use: No Preferred Language: Azerbaijani Communication Ability: Effective Enrolled Agent Required: No Beliefs That Will Affect Care: None Current Living Situation: Spouse Other Information That Helps Us Care for You: No Feels Safe at Home: Yes Safety Concerns: Feels Safe At This Time Assistive Devices: Walker Review of Systems Review of Systems: All systems reviewed & are unremarkable except as noted in HPI & below Physical Exam Physical Exam: General: WD/WN, comfortable and resting in bed, NAD Eyes: anicteric, PERRLA ENT: mmm, trachea midline without deviation Resp: CTAB, no wheezes/crackles/rales CV: RRR (93bpm), no m/r/g GI: +BS throughout, soft, non-tender MSK/Neuro: dressing to lumbar spine c/d/i (some shadowing), scant blood drainage in DAVION (stated emptied overnight), strength equal dorsiflexion/plantar flexion, NVI, calves non-tender to palpation, pulses palpable Skin: warm, dry Psych: AOx3 : no allred Results & Data Results & Data ([facility]) Vital Signs (Past 12 Hours) Vital Signs Temp Pulse Resp BP Pulse Ox 02/25/21 07:56 37.1 C 93 H 18 168/87 H 97 02/25/21 02:26 37.0 C 98 H 20 138/81 96 02/24/21 22:35 37.1 C 118 H 16 143/84 H 96 Laboratory Results 02/25/21 02/25/21 02/25/21 Range/Units 08:48 08:48 08:48 WBC (4.8-10.8) K/uL RBC (4.7-6.1) M/uL Hgb (14.0-18.0) g/dL Hct (42-52) % MCV (80-100) fL MCH (25-34) pg MCHC (32-36) g/dL RDW Std Deviation (36.4-46.3) fL RDW Coeff of Lucinda (11.5-14.5) % Plt Count (130-400) K/uL MPV (7.4-10.4) fL Immature Gran % (Auto) % Neut % (Auto) % Lymph % (Auto) % [place] % (Auto) % Eos % (Auto) % Baso % (Auto) % Neut # (Auto) (1.4-6.5) K/uL Lymph # (Auto) (1.2-3.4) K/uL [place] # (Auto) (0.11-0.59) K/uL Eos # (Auto) (0-0.5) K/uL Baso # (Auto) (0-0.2) K/uL Immature Gran # (Auto) (0.00-0.02) K/uL Sodium 140 (136-145) mmol/L Potassium 3.4 L (3.5-5.1) mmol/L Chloride 109 H (98-107) mmol/L Carbon Dioxide 26 (21-32) mmol/L Anion Gap 5.0 (3-11) BUN 16 (7-18) mg/dl Creatinine 1.05 (0.6-1.4) mg/dl Est Cr Clr Drug Dosing 85.9 ml/min Est GFR ( Amer) 94.8 ml/min Est GFR (Non-Af Amer) 81.8 ml/min BUN/Creatinine Ratio 14.9 (10-20) Glucose 150 H (70-99) mg/dl Calcium 8.4 L (8.5-10.1) mg/dl Magnesium 2.2 (1.8-2.4) mg/dl Albumin Pending SARS-CoV-2 (PCR) (Negative) 02/25/21 02/24/21 Range/Units 08:48 Unknown WBC 10.27 (4.8-10.8) K/uL RBC 3.85 L (4.7-6.1) M/uL Hgb 11.6 L (14.0-18.0) g/dL Hct 35.5 L (42-52) % MCV 92.2 (80-100) fL MCH 30.1 (25-34) pg MCHC 32.7 (32-36) g/dL RDW Std Deviation 43.0 (36.4-46.3) fL RDW Coeff of Lucinda 12.8 (11.5-14.5) % Plt Count 246 (130-400) K/uL MPV 10.3 (7.4-10.4) fL Immature Gran % (Auto) 0.1 % Neut % (Auto) 77.0 % Lymph % (Auto) 15.7 % [place] % (Auto) 6.9 % Eos % (Auto) 0.2 % Baso % (Auto) 0.1 % Neut # (Auto) 7.91 H (1.4-6.5) K/uL Lymph # (Auto) 1.61 (1.2-3.4) K/uL [place] # (Auto) 0.71 H (0.11-0.59) K/uL Eos # (Auto) 0.02 (0-0.5) K/uL Baso # (Auto) 0.01 (0-0.2) K/uL Immature Gran # (Auto) 0.01 (0.00-0.02) K/uL Sodium (136-145) mmol/L Potassium (3.5-5.1) mmol/L Chloride (98-107) mmol/L Carbon Dioxide (21-32) mmol/L Anion Gap (3-11) BUN (7-18) mg/dl Creatinine (0.6-1.4) mg/dl Est Cr Clr Drug Dosing ml/min Est GFR ( Amer) ml/min Est GFR (Non-Af Amer) ml/min BUN/Creatinine Ratio (10-20) Glucose (70-99) mg/dl Calcium (8.5-10.1) mg/dl Magnesium (1.8-2.4) mg/dl Albumin SARS-CoV-2 (PCR) NEGATIVE (Negative) Diagnostic Findings Lumbar Spine X-Ray 02/24/21 00:00 FL lumbar spine 2-3V CLINICAL HISTORY: L5-S1 DECOMP AND FUSION COMPARISON STUDY: None. FLUOROSCOPY TIME: 23 seconds. FINDINGS: 2 fluoroscopic spot images of the lower lumbar spine demonstrate posterior decompression fusion at L5-S1 with pedicle screws and rods. The hardware appears intact. There is also a disc spacer at this level. IMPRESSION: Fluoroscopy provided for L5-S1 posterior decompression and fusion ACT 112: Negative or not required by law. Electronically signed by: Manjinder Christianson M.D. 02/24/2021 2:47 PM PG Care Time/CCT Total # of Minutes Spent Total Time Spent with Patient: Total time spent is greater than 50% in coordination of care (as documented) at patient's floor/unit and/or counseling patient: Coding Level of Care Code 01170 Inpt Consult Level 3 Diagnoses Lumbar radiculopathy, right M54.16 Anemia D64.9 Hypercholesteremia E78.00 DVT prophylaxis Z29.9 Alcohol use Z72.89 Hypokalemia E87.6
[2021-02-25 09:21] LABS: Basophils # (auto) 0.01 K/uL (0-0.2); Basophils % (auto) 0.1 %; Eosinophils # (auto) 0.02 K/uL (0-0.5); Eosinophils % (auto) 0.2 %; Hematocrit (blood only) 35.5 % (42-52); Hemoglobin 11.6 g/dL (14.0-18.0); Immature Granulocytes # (auto) 0.01 K/uL (0.00-0.02); Immature Granulocytes % (auto) 0.1 %; Lymphocytes # (auto) 1.61 K/uL (1.2-3.4); Lymphocytes % (auto) 15.7 %; Mean Corpuscular Hemoglobin 30.1 pg (25-34); Mean Corpuscular Hgb Conc 32.7 g/dL (32-36); Mean Corpuscular Volume 92.2 fL (80-100); Mean Platelet Volume 10.3 fL (7.4-10.4); Monocytes # (auto) 0.71 K/uL (0.11-0.59); Monocytes % (auto) 6.9 %; Neutrophils # (auto) 7.91 K/uL (1.4-6.5); Platelet Count 246 K/uL (130-400); RDW Coefficient of Variation 12.8 % (11.5-14.5); Red Blood Count 3.85 M/uL (4.7-6.1); White Blood Count 10.27 K/uL (4.8-10.8)
[2021-02-25 09:38] LABS: BUN Creatinine Ratio 14.9 (10-20); Calcium 8.4 mg/dl (8.5-10.1); Creatinine Clr Calc Pharmacy 85.9 ml/min; Est GFR (African American) 94.8 ml/min; Est GFR (Non-African American) 81.8 ml/min; Potassium 3.4 mmol/L (3.5-5.1)
[2021-02-25] MEDS ORDERED: POTASSIUM CHLORIDE CRTAB 20 MEQ TABCR PO STA (10:06)
[2021-02-25] MEDS: ASCORBIC ACID 500 MG TAB PO SCH (10:43)
[2021-02-25] MEDS: IRON POLYSACCHARIDE COMPLEX 150 MG CAPSULE PO SCH (10:43)
[2021-02-25] MEDS: MULTIVITAMIN TAB PO SCH (10:43)
[2021-02-25] MEDS ORDERED: LORazepam 1 MG TAB PO PRN (11:31)
[2021-02-25] MEDS: THIAMINE HCL 100 MG TAB PO SCH (12:29)
[2021-02-25] MEDS: FOLIC ACID 1 MG TAB PO SCH (12:29)
[2021-02-25] MEDS: DOCUSATE SODIUM 100 MG CAP PO SCH ×2 (12:29→20:59)
--- NOTE | 2021-02-25 12:35 | Orthopedic Progress Note ---
Date of Service February 25, 2021 Assessment & Plan (1) Lumbar radiculopathy, right: Plan: This time we will encourage physical therapy monitor his DAVION output hopefully discharge home in the next few days. Admission and Anticipated Discharge Date Admission Date: February 24, 2021 Subjective Back pain controlled leg pain markedly improved Physical Exam Physical Exam: Patient is ambulating halls. Is steady gait. Good strength testing. Results & Data ([facility]) Vital Signs (Past 12 Hours) Vital Signs Temp Pulse Resp BP Pulse Ox 02/25/21 07:56 37.1 C 93 H 18 168/87 H 97 02/25/21 02:26 37.0 C 98 H 20 138/81 96
[2021-02-25] MEDS: traMADol HCL 50 MG TABLET PO PRN (19:37)
[2021-02-25] MEDS: DOCUSATE SODIUM/SENNA 50/8.6MG TAB PO SCH (20:58)
[2021-02-26] MEDS: traMADol HCL 50 MG TABLET PO PRN ×2 (00:05→05:39)
[2021-02-26] MEDS ORDERED: MULTI-VITAMIN INFUSION 10 ML, THIAMINE HCL 100 MG, FOLIC ACID 1 MG in SODIUM CHLORIDE 0... IV ONE (00:15)
[2021-02-26] MEDS: oxyCODONE HCL IR 5 MG TAB (IMMEDIATE RELEASE) PO PRN ×2 (02:53→12:01)
[2021-02-26] MEDS: POLYETHYLENE (MIRALAX) 17 GM PACK PO SCH ×2 (05:33→12:02)
[2021-02-26 08:46] LABS: Hematocrit (blood only) 34.7 % (42-52); Hemoglobin 11.6 g/dL (14.0-18.0); Mean Corpuscular Hemoglobin 30.6 pg (25-34); Mean Corpuscular Hgb Conc 33.4 g/dL (32-36); Mean Corpuscular Volume 91.6 fL (80-100); Mean Platelet Volume 10.2 fL (7.4-10.4); Platelet Count 243 K/uL (130-400); RDW Coefficient of Variation 12.6 % (11.5-14.5); RDW Standard Deviation 42.7 fL (36.4-46.3); Red Blood Count 3.79 M/uL (4.7-6.1); White Blood Count 10.62 K/uL (4.8-10.8)
[2021-02-26] MEDS: MULTIVITAMIN TAB PO SCH (08:59)
[2021-02-26] MEDS: DOCUSATE SODIUM 100 MG CAP PO SCH (08:59)
[2021-02-26] MEDS: FOLIC ACID 1 MG TAB PO SCH (08:59)
[2021-02-26] MEDS: THIAMINE HCL 100 MG TAB PO SCH (08:59)
[2021-02-26] MEDS: ASCORBIC ACID 500 MG TAB PO SCH (08:59)
[2021-02-26] MEDS: IRON POLYSACCHARIDE COMPLEX 150 MG CAPSULE PO SCH (08:59)
[2021-02-26] MEDS ORDERED: dexAMETHasone 8 MG in SYRINGE 0 ML IV SCH (09:00)
--- NOTE | 2021-02-26 09:08 | Discharge Summary ---
Date of Service February 26, 2021 Admission HPI Per Admitting Provider This is a 50-year-old male presents with progressive leg pain and weakness affecting the right lower extremity. He denies any precipitating trauma fall or event. He has been unable to work. He has undergone several courses of oral steroids as well as narcotic pain medications without resolution of his pain. We did trial one epidural injection which failed to provide any noticeable relief. He now notes a foot drop with ambulation and unable to perform his regular activities and unable to sleep. Principal Diagnosis Lumbar spinal stenosis with radiculopathy Discharge Data Allergies Allergy/AdvReac Type Severity Reaction Status Date / Time Envmufe-Ddf-Suh Reductase Allergy Intermediate skin on Verified 02/24/21 10:44 Inhibitor fire Penicillins Allergy Mild nausea Verified 02/24/21 10:44 when child clindamycin Allergy Unknown Unknown Verified 02/24/21 10:44 Consultations 02/24/21 16:26 Consult Hospitalist Routine Procedures Performed Operation Date: 02/24/21 12:25 Actual Procedures p L5-S1 Deompression and Fusion, Interbody Cage L5-S1; Spinal Cord Monitoring - Gamaliel Andrade DO Ordered Studies 02/24/21 [place] lumbar spine 2-3V Routine Hospital Course (1) Lumbar radiculopathy, right: Patient underwent lumbar decompression fusion tolerates well second orthopedic for postoperative postop day 1 he was up and ambulating. Postop day or 2. DAVION drain decreasing appropriately. Excellent strength testing. Subsequently discharged home. Discharge orders instructions from the chart for further review. Total Time Total Time Spent Total Time Spent (In Minutes): 20 minutes Discharge Plan Discharge Items Patient Disposition: Home - Self-Care Reason For Visit: Spinal Stenosis, Lumbar Region without Neurogenic Discharge Diagnosis: Lumbar spinal stenosis with radiculopathy Activity: As commented below Non-emergency contact: Primary Care Provider Call non-emergency contact if: you have any medication questions Follow-up/Referrals: Denton Albrecht DO [Physician] - (Please phone doctor Cases office to schedule a colonoscopy being that you have not had one in the past three years according to their records. After the colonoscopy, you will be scheduled for a folow up appt with Dr Albrecht. Gastro office: [phone]) Gabriel Mayroga III, MD [Primary Care Provider] - Diet: Regular Addtl Attending Provider Instructions: ACTIVITY RECOMMENDATIONS: SELF CARE INSTRUCTIONS AFTER THORACIC/LUMBAR FUSIONS 1. You may walk to your tolerance. It is good exercise for your legs and back. Expect some back and intermittent leg aches and pains. 2. You may perform "counter-top" level activities (make a sandwich, yaima with a project, etc.). 3. No bending or lifting of more than 10 pounds or back twisting of any nature (roll like a log when turning in bed). 4. You may ride in a car for 20-30 minutes at a time. No driving until after your first visit with your doctor. 5. Frequent changes of position and restricting sitting to 30 minutes at a time will help limit the amount of back spasms and stiffness you may experience. 6. You may discontinue the use of ambulatory aids (cane, crutches, etc.) once your strength and confidence allow. 7. You may business analysis analyst the shower and let water strike your incision when you arrive home at least once daily. Do not take a tub bath, sit in a hot tub or go into a swimming pool until after your first recheck in the office. SPECIAL CARE INSTRUCTIONS: VERY IMPORTANT TO READ AND REVIEW A. Your surgical incision has been closed with a cosmetic suture under the skin that will dissolve in about 6 weeks. In 14 days, you can use a pair of clean scissors and cut the suture that is left outside of the skin at the ends of your incision. 1. The small skin tapes can be removed 7 days after surgery if they have not fallen off by that point. 2. You may keep the wound open to air as much as possible to promote healing after post-op day number 5 unless told otherwise by your doctor. 3. If you think the wound looks like it is becoming infected (redness or worsening drainage) and/or you are experiencing fever, chill or worsening back pain and muscle spasms, contact the office so that we may evaluate you as soon as possible. B. Complications are uncommon, but please contact us if you have any signs or symptoms of: 1. wound infection (fever higher than 102.5 degrees F, redness, separation of wound, drainage, or increasing pain from the incision) 2. blood clots in legs (pain, swelling, redness and warmth in legs) 3. urinary tract infection (fever higher than 102.5 degrees F, burning upon urination or increased frequency of urination) 4. nerve problems (inability to walk on your toes or heels, numbness, loss of bowel or bladder control) 5. any other symptoms that concern you C. Please call the office at if you have any concerns or questions about your operation or recovery. D. No smoking! Smoking drastically decreases the chance of a solid fusion. E. Do not take any anti-inflammatory medications (Indocin, Advil, Motrin, Aspirin, Naprosyn, etc.) as these may inhibit the chance of a solid fusion. Tylenol is okay to take for pain. MANAGING PAIN AFTER SPINAL SURGERY 1. Narcotic medication is intended for short-term use and will be provided for surgical pain. Surgical pain usually lasts for a period of 4-6 weeks. Narcotic medication includes Percocet, Vicodin, Darvocet, Tylenol #3 or Lortab. 2. Longer-term pain is more appropriately treated with non-narcotic medication such as Tylenol ES. 3. Muscle spasm is not appropriately treated with narcotics. Muscle relaxers such as Soma, Flexeril or Skelaxin can be used along with Tylenol ES. 4. Remember that we all live with some "aches and pains". This is not unusual or uncommon after an injury or as we get older. a. Back pain is expected and may include muscle spasms for 4 to 6 weeks after surgery. The pain should gradually improve. If the pain worsens for no apparent reason, please contact the office. b. Intermittent leg pain may also be experienced and should not be concerned about unless it worsens for no apparent reason. If so, please contact the office. 5. We will provide appropriate medication within the normal guidelines of their prescribed use. We will also be very cautious and aware of potential abuse and extended duration of patients' medication needs. a. Pain medications are for your comfort and to assist with sleep and rest so that the tissue can heal. They are not provided in order to return to normal activity and should not be used through the day. To do so or worsening pain at night can result from ongoing tissue damage and development of tolerance to the prescribed medicine. 6. Please allow 2-3 days to process refills. Prescriptions will not be mailed but must be picked up at the office. FOLLOW UP VISIT: Keep your scheduled follow-up appointment. Any questions, please call the office at . Pending Studies at Discharge: No Stand-Alone Forms: My [facility], Smoking Cessation Medications and DC Order Prescriptions: New tramadol 50 mg tablet 50 mg PO Q6H PRN (Reason: pain, moderate) Qty: 30 RF: 0 oxycodone 5 mg tablet 5 mg PO Q6H PRN (Reason: pain, severe) Qty: 30 RF: 0 ondansetron HCl [Zofran] 4 mg tablet 4 mg PO Q8H PRN (Reason: nausea and vomiting) Qty: 20 RF: 0 Continued Sutab 1.479-0.188- 0.225 gram tablet See Rx Instructions .Route .COMPLEX Qty: 24 RF: 0 oxycodone 5 mg tablet See Rx Instructions PO Q6H PRN (Reason: pain) Qty: 30 RF: 0 multivitamin tablet 1 tab PO QAM RF: 0 ascorbate calcium (vitamin C) 500 mg tablet 500 mg PO QAM RF: 0 polysaccharide iron complex [iFerex 150] 150 mg iron capsule 150 mg PO QAM RF: 0 fenofibrate 160 mg tablet 160 mg PO QAM RF: 0 Discharge Orders: Discharge Order (Routine); Ordered 02/26/21 Ordered By: Gamaliel Andrade Admission Data Admit Date/Time: 02/24/21 13:50 Attending Provider: Gamaliel Andrade Admit Provider: Gamaliel Andrade Primary Care Provider: Gabriel Mayorga III Other Providers: Wil Serra
[2021-02-26 09:10] LABS: BUN Creatinine Ratio 13.6 (10-20); Calcium 8.3 mg/dl (8.5-10.1); Est GFR (African American) 109.8 ml/min; Est GFR (Non-African American) 94.7 ml/min; Potassium 3.9 mmol/L (3.5-5.1)
[2021-02-26 09:14] LABS: Ferritin 88.4 ng/ml (8-388)
--- NOTE | 2021-02-26 09:15 | Hospitalist Progress Note ---
Date of Service February 26, 2021 Assessment & Plan (1) Lumbar radiculopathy, right: Plan: POD#1 s/p #1 lumbar decompression with bilateral medial facetectomies and foraminotomies L5-S1. #2 posterior spinal fusion L5-S1. #3 placement of posterior instrumentation L5-S1. #4 interbody fusion L5-S1. #5 placement peek cage 12 x 26 mm at L5-S1. #6 placement locally harvested morselized autograft in the posterior gutters. #7 placement of I factor in the interbody space and posterior lateral gutters. by Dr. Andrade on 02/24. Pre-op h/h 14.2/43.3 EBL 100cc. + DAVION 270cc + 10cc Hgb/hct today remain 11.6/35.5 -- acute blood loss anemia from surgery as well as dilutional in patient with history of anemia on iron replacement at home (got 3.1L during pre/perioperative period and 1L banana bad last evening) PT/OT/pain management/bowel regiment per primary service + BMs DVT proph -- SCDs, ania hose. Chemical contraindicated in setting of back surgery (2) Anemia: Plan: Patient states had c-scope by Dr. Albrecht approx 6 years ago and was due for repeat after 5 years but this was postponed due to current issue Had been having bloody diarrhea (non-painful) AFTER colonoscopy and + fecal occult per patient --> reported having straight liquid bloody diarrhea on multiple occasions, none recently and had been started on daily iron supplementation No family history of colon ca, crohns/colitis Will check iron stores on AM labs/B12/folate (give etoh) and attempt to get sooner follow up with Dr. Albrecht for evaluation --> Iron studies c/w SHARMILA. Iron studies checked --> iron low at 16, trans % sat 5% and will give dose of Venofer prior to d/c. Instructed to increase supplementation at d/c and f/u with PCP about venofer transfusions but also rec'd following up with Dr. Albrecht sooner for c-scope that was due last year B12/folate wnl Hgb stable (3) Alcohol use: Plan: reported 2-3 beers/daily AWSS ordered, ativan prn no signs of withdrawal currently did given banana bag last night continue to monitor recs decreased use/abstinence to prevent worsening bleeding issues Thiamine, folate replacement B12 wnl (4) Hypercholesteremia: Plan: continue fenofibrate (5) Hypokalemia: Plan: K 3.4-- ordered 20meq PO x 1 Mag wnl RESOLVED (6) DVT prophylaxis: Plan: scds, ania hose chemical contraindicated in setting of back surgery Plan: plans for d/c this afternoon per primary service Admission and Anticipated Discharge Date Admission Date: February 24, 2021 Subjective Patient evaluated this morning. Doing well. Pain controlled. Eating/drinking. Bowel movements yesterday. Worked with therapy and did well, steps witnessed in hallway during eval. No fever, chills, chest pain, shortness of breath (occassional palpitations), abdominal pain, nausea or vomiting. Discussed low iron stores and will give venofer before he leaves. Increase iron supplementations/bowel regimen at d/c vs follow up with PCP for venofer transfusions but also encouraged sooner follow up with Dr. Albrecht. [place] working on appt but did alert Dr. Albrecht last evening of reported hematochezia. Review of Systems Review of Systems: All systems reviewed & are unremarkable except as noted in HPI & below Physical Exam Physical Exam: General: WD/WN, comfortable and resting in bed, NAD Eyes: anicteric, PERRLA ENT: mmm, trachea midline without deviation Resp: CTAB, no wheezes/crackles/rales CV: RRR (98bpm), no m/r/g GI: +BS throughout, soft, non-tender MSK/Neuro: dressing to lumbar spine c/d/i, scant blood drainage in DAVION (stated emptied overnight), strength equal dorsiflexion/plantar flexion, NVI, calves non-tender to palpation, pulses palpable Skin: warm, dry Psych: AOx3 : no allred Results & Data Results & Data ([facility]) Vital Signs (Past 12 Hours) Vital Signs Temp Pulse Resp BP BP Pulse Ox 02/26/21 07:20 36.9 C 100 H 16 155/85 H 95 02/25/21 23:22 37.1 C 111 H 18 156/89 H 94 Laboratory Results 02/26/21 02/26/21 02/26/21 Range/Units 08:20 08:20 08:20 WBC 10.62 (4.8-10.8) K/uL RBC 3.79 L (4.7-6.1) M/uL Hgb 11.6 L (14.0-18.0) g/dL Hct 34.7 L (42-52) % MCV 91.6 (80-100) fL MCH 30.6 (25-34) pg MCHC 33.4 (32-36) g/dL RDW Std Deviation 42.7 (36.4-46.3) fL RDW Coeff of Lucinda 12.6 (11.5-14.5) % Plt Count 243 (130-400) K/uL MPV 10.2 (7.4-10.4) fL Sodium 136 (136-145) mmol/L Potassium 3.9 (3.5-5.1) mmol/L Chloride 105 (98-107) mmol/L Carbon Dioxide 26 (21-32) mmol/L Anion Gap 5.0 (3-11) BUN 13 (7-18) mg/dl Creatinine 0.93 (0.6-1.4) mg/dl Est Cr Clr Drug Dosing 97.0 ml/min Est GFR ( Amer) 109.8 ml/min Est GFR (Non-Af Amer) 94.7 ml/min BUN/Creatinine Ratio 13.6 (10-20) Glucose 124 H (70-99) mg/dl Calcium 8.3 L (8.5-10.1) mg/dl Iron 16 L (35-175) mcg/dl TIBC 291 (250-450) mcg/dl Transferrin 240 (200-360) mg/dl Transferrin % Sat 5 L (20-50) % Ferritin 88.4 (8-388) ng/ml Albumin (3.4-5.0) gm/dl Vitamin B12 441 (193-986) pg/ml Folate > 20.00 (>5.38) ng/ml 02/25/21 Range/Units 08:48 WBC (4.8-10.8) K/uL RBC (4.7-6.1) M/uL Hgb (14.0-18.0) g/dL Hct (42-52) % MCV (80-100) fL MCH (25-34) pg MCHC (32-36) g/dL RDW Std Deviation (36.4-46.3) fL RDW Coeff of Lucinda (11.5-14.5) % Plt Count (130-400) K/uL MPV (7.4-10.4) fL Sodium (136-145) mmol/L Potassium (3.5-5.1) mmol/L Chloride (98-107) mmol/L Carbon Dioxide (21-32) mmol/L Anion Gap (3-11) BUN (7-18) mg/dl Creatinine (0.6-1.4) mg/dl Est Cr Clr Drug Dosing ml/min Est GFR ( Amer) ml/min Est GFR (Non-Af Amer) ml/min BUN/Creatinine Ratio (10-20) Glucose (70-99) mg/dl Calcium (8.5-10.1) mg/dl Iron (35-175) mcg/dl TIBC (250-450) mcg/dl Transferrin (200-360) mg/dl Transferrin % Sat (20-50) % Ferritin (8-388) ng/ml Albumin 2.8 L (3.4-5.0) gm/dl Vitamin B12 (193-986) pg/ml Folate (>5.38) ng/ml PG Care Time/CCT Total # of Minutes Spent Total Time Spent with Patient: Total time spent is greater than 50% in coordination of care (as documented) at patient's floor/unit and/or counseling patient: Coding Level of Care Code 80786 Subseq Hosp Care Lvl 2 Diagnoses Lumbar radiculopathy, right M54.16 Anemia D64.9 Alcohol use Z72.89 Hypercholesteremia E78.00 Hypokalemia E87.6 DVT prophylaxis Z29.9
[2021-02-26 09:32] LABS: Folate (Folic Acid) > 20.00 ng/ml (>5.38); Vitamin B12 441 pg/ml (193-986)
[2021-02-26] MEDS ORDERED: IRON SUCROSE 300 MG in SODIUM CHLORIDE 0.9% 250 ML IV ONE (10:30)
== END 2021-02-26 15:12 | disposition home or self-care (01) | DRG 454 ==
LOC: ASU 10:29 → PACUINP 13:50 → 3N 16:33